=== PATIENT | male | born 1960 | race Caucasian/White ===

== ENCOUNTER 2019-04-06 05:43 | Emergency (ER) | payer OTHER ==
[2019-04-06] MEDS: Nitroglycerin 0.4 MG Tab.SL SL PRN ×2 (05:50→06:15)
[2019-04-06] MEDS ORDERED: Sodium Chloride 0.9% 10 ML Syringe FLUSH PRN (06:06)
[2019-04-06] MEDS ORDERED: Sodium Chloride 0.9% 1,000 ML IV SCH (06:15)
[2019-04-06] MEDS ORDERED: Ticagrelor 90 MG Tab PO ONE (06:23)
[2019-04-06] MEDS ORDERED: Heparin Sodium 5,000 Units/ML Vial IVPUSH ONE (06:23)
--- NOTE | 2019-04-06 06:32 | EDM.PDOC ---
ED HPI GENERAL MEDICAL PROBLEM - General Chief Complaint: Cardiovascular Problem Stated Complaint: CHEST PAIN Time Seen by Provider: 04/06/19 05:50 Source of Information: Reports: Patient History Limitations: Reports: No Limitations - History of Present Illness INITIAL COMMENTS - FREE TEXT/NARRATIVE: 58-year-old male who reports that at approximately 4:30 AM while he was driving to work, he developed pain in his central chestthat was a pressure type pain and he also had pain that was an aching and pressure type pain in both of his arms from his elbows down to his hands. Nothing really seemed to make this pain better or worse. He has some mild nausea associated with it. It did seem to wax and wane in intensity. The pain was unrelenting though and he came to the emergency department for evaluation. He is currently rating the pain as a 5/ 10. It is nonradiating. He has no back pain. He did have a cold sweat associated with this.he reports that about a week ago he had vomiting and diarrhea and the day following that he had bilateral arm pain that lasted 4-5 hours and then resolved on its own. He has had no prior chest pain. There are no other associated signs or symptoms. There are no other modifying factors. Onset: Today (4:30 AM) Duration: Getting Worse Location: Reports: Chest, Upper Extremity, Left, Upper Extremity, Right Quality: Reports: Ache, Pressure Severity: Moderate Improves with: Reports: None Worsens with: Reports: None Context: Reports: Activity (driving to work) Associated Symptoms: Reports: Chest Pain, Nausea/Vomiting (nausea but no vomiting), Shortness of Breath (feels somewhat short of breath) Treatments ENERGY AND SUSTAINABILITY MANAGER: Reports: Other (see below) (nothing) - Related Data Allergies Allergy/AdvReac Type Severity Reaction Status Date / Time No Known Allergies Allergy Verified 04/06/19 06:05 Home Meds: Home Meds NK [No Known Home Meds] 04/06/19 [History] Past Medical History - Past Health History Medical/Surgical History: Denies Medical/Surgical History - Past Surgical History Other Surgical History Comment: no previous surgeries Social & Family History - Tobacco Use Smoking Status *Q: Current Every Day Smoker - Alcohol Use Alcohol Use History: Yes Alcohol Use Frequency: Daily (2-5 beers daily) - Recreational Drug Use Recreational Drug Use: No - Living Situation & Occupation 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 ED ROS GENERAL - Review of Systems Review Of Systems: See Below Constitutional: Reports: Diaphoresis HEENT: Reports: No Symptoms Respiratory: Reports: No Symptoms Cardiovascular: Reports: Chest Pain Endocrine: Reports: No Symptoms GI/Abdominal: Reports: Nausea : Reports: No Symptoms Musculoskeletal: Reports: Arm Pain (bilateral arm pain from elbow to hands) Skin: Reports: Diaphoresis Neurological: Reports: No Symptoms Psychiatric: Reports: Anxiety Hematologic/Lymphatic: Reports: No Symptoms Immunologic: Reports: No Symptoms ED EXAM, GENERAL - Physical Exam Exam: See Below Exam Limited By: No Limitations General Appearance: Alert, WD/WN, Moderate Distress Eye Exam: Bilateral Eye: EOMI, Normal Inspection, PERRL Ears: Normal External Exam, Hearing Grossly Normal Nose: Normal Inspection, Normal Mucosa Throat/Mouth: Normal Inspection, Normal Voice, No Airway Compromise Head: Atraumatic, Normocephalic Neck: Normal Inspection, Supple, Non-Tender, Full Range of Motion Respiratory/Chest: No Respiratory Distress, Lungs Clear, Normal Breath Sounds, No Accessory Muscle Use Cardiovascular: Normal Peripheral Pulses, Regular Rate, Rhythm, No JVD, No Murmur Peripheral Pulses: 2+: Radial (L), Radial (R) GI/Abdominal: Normal Bowel Sounds, Soft, Non-Tender, No Organomegaly, No Mass Back Exam: Normal Inspection Extremities: Normal Inspection, Normal Range of Motion, No Pedal Edema, Normal Capillary Refill, Pedal Edema Neurological: Alert, Oriented, CN II-XII Intact, Normal Cognition, No Motor/ Sensory Deficits Psychiatric: Anxious Skin Exam: Warm, Intact, Normal Color, No Rash, Diaphoretic (mildly) Lymphatic: No Adenopathy EKG INTERPRETATION EKG Date: 04/06/19 Time: 05:46 Rhythm: NSR Hilham: LAD-Left Hilham Deviation (mmild) P-Wave: Present QRS: Normal ST-T: Elevated QT: Normal Comparison: NA - No Prior EKG EKG Interpretation Comments: acute STEMI pattern with ST segment elevation in lead 1, V1, V2, V3,, V4 and aVL. Consistent with an acute anterolateral SD. repeat EKG performed at 6:35 AM showed really no change in ST segment elevation from previous EKG,, although, the patient reported improving symptoms. Course - Vital Signs Last Recorded V/S: Last Vital Signs Temp Pulse Resp BP 128/68 04/06/19 06:15 Pulse Ox - Orders/Labs/Meds Orders: Active Orders 24 hr Category Date Time Status EKG Documentation Completion [RC] ASDIRECTED Care 04/06/19 06:08 Active Chest 1V Frontal [CR] Stat Exams 04/06/19 06:06 Taken Chest 1V Frontal [CR] Stat Exams 04/06/19 06:11 Ordered Nitroglycerin [Nitrostat] Med 04/06/19 06:09 Active 0.4 mg SL Q5M PRN Sodium Chloride 0.9% [Normal Saline] 1,000 ml Med 04/06/19 06:15 Active IV ASDIRECTED Sodium Chloride 0.9% [Saline Flush] Med 04/06/19 06:06 Active 10 ml FLUSH ASDIRECTED PRN Peripheral IV Insertion Adult [OM.PC] Routine Oth 04/06/19 06:06 Ordered EKG 12 Lead [EK] Routine Ther 04/06/19 06:06 Ordered Medication Orders Sodium Chloride (Normal Saline) 1,000 mls @ 125 mls/hr IV ASDIRECTED JAGDISH Last Admin: 04/06/19 06:26 Dose: 125 mls/hr Nitroglycerin (Nitrostat) 0.4 mg SL Q5M PRN PRN Reason: Chest Pain Last Admin: 04/06/19 06:15 Dose: 0.4 mg Admin: 04/06/19 05:50 Dose: 0.4 mg Sodium Chloride (Saline Flush) 10 ml FLUSH ASDIRECTED PRN PRN Reason: Keep Vein Open Labs: Laboratory Tests 04/06/19 04/06/19 04/06/19 Range/Units 06:05 06:05 06:05 WBC 9.6 (4.5-12.0) X10-3/uL RBC 5.01 (4.30-5.75) x10(6)uL Hgb 17.3 (13.5-17.8) g/dL Hct 50.8 (30.0-51.3) % MCV 101.4 H (80-96) fL MCH 34.5 H (27.7-33.6) pg MCHC 34.0 (32.2-35.4) g/dL RDW 12.8 (11.5-15.5) % Plt Count 302 (125-369) X10(3)uL MPV 8.2 (7.4-10.4) fL Neut % (Auto) 53.4 (46-82) % Lymph % (Auto) 35.1 (13-37) % Gonzales % (Auto) 7.3 (4-12) % Eos % (Auto) 3 (1.0-5.0) % Baso % (Auto) 2 (0-2) % Neut # (Auto) 5.1 (1.6-8.3) # Lymph # (Auto) 3.4 (0.6-5.0) # Gonzales # (Auto) 0.7 (0.0-1.3) # Eos # (Auto) 0.3 (0.0-0.8) # Baso # (Auto) 0.1 (0.0-0.2) # PT (8.7-11.1) INR (0.89-1.13) APTT 24.4 (24.4-33.2) SECONDS Sodium 136 (135-145) mmol/L Potassium 4.2 (3.5-5.3) mmol/L Chloride 101 (100-110) mmol/L Carbon Dioxide 23 (21-32) mmol/L BUN 7 (7-18) mg/dL Creatinine 0.9 (0.70-1.30) mg/dL Est Cr Clr Drug Dosing TNP Estimated GFR (MDRD) > 60 (>60) BUN/Creatinine Ratio 7.8 L (9-20) Glucose 149 H (80-116) mg/dL Calcium 9.3 (8.6-10.2) mg/dL Total Bilirubin 0.7 (0.1-1.3) mg/dL AST 168 H* (5-25) IU/L ALT 291 H* (12-36) U/L Alkaline Phosphatase 85 (56-112) IU/L Troponin I (<0.017-0.056) ng/mL Total Protein 7.7 (6.0-8.0) g/dL Albumin 3.6 (3.5-5.2) g/dL Globulin 4.1 g/dL Albumin/Globulin Ratio 0.9 04/06/19 04/06/19 Range/Units 06:05 06:05 WBC (4.5-12.0) X10-3/uL RBC (4.30-5.75) x10(6)uL Hgb (13.5-17.8) g/dL Hct (30.0-51.3) % MCV (80-96) fL MCH (27.7-33.6) pg MCHC (32.2-35.4) g/dL RDW (11.5-15.5) % Plt Count (125-369) X10(3)uL MPV (7.4-10.4) fL Neut % (Auto) (46-82) % Lymph % (Auto) (13-37) % Gonzales % (Auto) (4-12) % Eos % (Auto) (1.0-5.0) % Baso % (Auto) (0-2) % Neut # (Auto) (1.6-8.3) # Lymph # (Auto) (0.6-5.0) # Gonzales # (Auto) (0.0-1.3) # Eos # (Auto) (0.0-0.8) # Baso # (Auto) (0.0-0.2) # PT 9.4 (8.7-11.1) INR 0.97 (0.89-1.13) APTT (24.4-33.2) SECONDS Sodium (135-145) mmol/L Potassium (3.5-5.3) mmol/L Chloride (100-110) mmol/L Carbon Dioxide (21-32) mmol/L BUN (7-18) mg/dL Creatinine (0.70-1.30) mg/dL Est Cr Clr Drug Dosing Estimated GFR (MDRD) (>60) BUN/Creatinine Ratio (9-20) Glucose (80-116) mg/dL Calcium (8.6-10.2) mg/dL Total Bilirubin (0.1-1.3) mg/dL AST (5-25) IU/L ALT (12-36) U/L Alkaline Phosphatase (56-112) IU/L Troponin I 0.618 H* (<0.017-0.056) ng/mL Total Protein (6.0-8.0) g/dL Albumin (3.5-5.2) g/dL Globulin g/dL Albumin/Globulin Ratio Meds: Medications Generic Name Dose Route Start Last Admin Trade Name Freq PRN Reason Stop Dose Admin Sodium Chloride 1,000 mls @ 125 mls/hr 04/06/19 06:15 04/06/19 06:26 Normal Saline IV 125 mls/hr ASDIRECTED JAGDISH Administration Nitroglycerin 0.4 mg 04/06/19 06:09 04/06/19 06:15 Nitrostat SL 0.4 mg Q5M PRN Administration Chest Pain Sodium Chloride 10 ml 04/06/19 06:06 Saline Flush FLUSH ASDIRECTED PRN Keep Vein Open Discontinued Medications Generic Name Dose Route Start Last Admin Trade Name Freq PRN Reason Stop Dose Admin Aspirin 324 mg 04/06/19 06:57 04/06/19 05:56 Aspirin PO 04/06/19 06:58 324 mg ONETIME ONE Administration Heparin Sodium (Porcine) 4,000 units 04/06/19 06:23 04/06/19 06:31 Heparin Sodium IVPUSH 04/06/19 06:24 4,000 units .BOLUS ONE Administration Lorazepam 1 mg 04/06/19 06:40 04/06/19 06:52 Ativan IVPUSH 04/06/19 06:41 1 mg ONETIME ONE Administration Ondansetron HCl 4 mg 04/06/19 06:47 04/06/19 06:53 Zofran IVPUSH 04/06/19 06:48 4 mg ONETIME ONE Administration Ticagrelor 180 mg 04/06/19 06:23 04/06/19 06:30 Brilinta PO 04/06/19 06:24 180 mg ONETIME ONE Administration - Radiology Interpretation Free Text/Narrative:: portable chest x-ray showed no acute disease. - Re-Assessments/Exams Free Text/Narrative Re-Assessment/Exam: 04/06/19 06:57: Patient presented with chest pain and bilateral arm pain and EKG showed an acute STEMI pattern in (acute anterolateral SD).STEMI protocol was activated at this time (6:05 AM). Patient had already been given aspirin 324 mg by mouth and one sublingual nitroglycerin with no relief of his symptoms prior to my arrival seeing the patient. He then received Brilinta 180 mg by mouth and heparin 4000 units IV as a bolus. He was also given another 2 nitroglycerin sublingual with decrease in his pain to a 2/10. He did report though that the pain seemed to wax and wane. shortly after the STEMI protocol was activated, I called [facility] was activated ( ground EMS with take 15 minutes to arrive here and [facility] would arrive in 20 minutes with a 12 minute transport time, therefore area ambulance was a clear choice for transporting this patient to the cardiac catheterization lab iin the shortest time possible), I discussed the patient's case with Dr. Goldstein, perinatal nurse at [facility] in [place], (EKG had been sent to [facility] in [place])and he agreed to accept the patient in transfer. He agreed with the treatment plan and asked that the patient be transported as quickly as possible. I had previously related to the patient that he was having a heart attack and he had directed me to call [facility] in [place]. The patient' s blood pressure was elevated upon arrival and has come down to the 130 systolic range with treatment in the emergency department. He has remained awake alert and appropriate with stable vital signs throughout his emergency department stay. [facility] is here and will be transporting the patient shortly. Departure - Departure Time of Disposition: 07:00 Disposition: DC/Tfer to Acute Hospital 02 Reason for Transfer *Q: Primary PCI Indicated Condition: Critical Clinical Impression: Acute anterolateral myocardial infarction, Alcoholic liver disease, unspecified Acute ST elevation myocardial infarction (STEMI) Qualifiers: Involved coronary artery: unspecified coronary artery Qualified Code(s): I21.3 - ST elevation (STEMI) myocardial infarction of unspecified site Referrals: PCP,None [Primary Care Provider] - Forms: ED Department Discharge Critical Care Note - Critical Care Note Total Time (mins): 60 - My Orders Last 24 Hours: My Active Orders 04/06/19 06:06 Chest 1V Frontal [CR] Stat Sodium Chloride 0.9% [Saline Flush] 10 ml FLUSH ASDIRECTED PRN Peripheral IV Insertion Adult [OM.PC] Routine EKG 12 Lead [EK] Routine 04/06/19 06:08 EKG Documentation Completion [RC] ASDIRECTED 04/06/19 06:09 Nitroglycerin [Nitrostat] 0.4 mg SL Q5M PRN 04/06/19 06:11 Chest 1V Frontal [CR] Stat 04/06/19 06:15 Sodium Chloride 0.9% [Normal Saline] 1,000 ml IV ASDIRECTED - Assessment/Plan Last 24 Hours: My Active Orders 04/06/19 06:06 Chest 1V Frontal [CR] Stat Sodium Chloride 0.9% [Saline Flush] 10 ml FLUSH ASDIRECTED PRN Peripheral IV Insertion Adult [OM.PC] Routine EKG 12 Lead [EK] Routine 04/06/19 06:08 EKG Documentation Completion [RC] ASDIRECTED 04/06/19 06:09 Nitroglycerin [Nitrostat] 0.4 mg SL Q5M PRN 04/06/19 06:11 Chest 1V Frontal [CR] Stat 04/06/19 06:15 Sodium Chloride 0.9% [Normal Saline] 1,000 ml IV ASDIRECTED
[2019-04-06] MEDS ORDERED: LORazepam 2 MG/ML SDV IVPUSH ONE (06:40)
[2019-04-06] MEDS ORDERED: Ondansetron 4 MG/2 ML SDV IVPUSH ONE (06:47)
[2019-04-06] MEDS ORDERED: Aspirin 81 MG Tab.Chew PO ONE (06:57)
--- NOTE | 2019-04-07 09:26 | CR ---
INDICATION: Chest pain. CHEST: Two portable AP upright views of the chest were obtained 04/06/19 - no comparisons. The heart did not appear enlarged. The aorta is slightly tortuous with calcification in the arch. Overlying EKG leads are noted. Linear density at the lower lung field on the left may represent fibrosis and/ or linear atelectasis - a definite active infiltrate or effusion was not identified. Multiple tiny densities are noted in the lower lung schreiber, most likely representing granulomas from previous granulomatous disease. IMPRESSION: No definite acute process - fibrosis versus linear atelectasis lower lung field on the left. MTDD
== END 2019-04-06 07:00 ==
LOC: FB.ED 05:43
DX: I21.09 ST elevation (STEMI) myocardial infarction involving other coronary artery of anterior wall (principal); K70.10 Alcoholic hepatitis without ascites; F17.200 Nicotine dependence, unspecified, uncomplicated
CPT/HCPCS: 36415; 71045; 80053; 84484; 85025; 85610; 85730; 93005; 96361; 96374; 96375; 99285-25; A9270-GY; J1644; J2060; J2405; J7030